=== PATIENT | female | born 1980 | race Caucasian/White ===

== ENCOUNTER → 2017-06-10 | Day surgery (SDC) | payer OTHER ==
[~2017-06-10] VITALS: Ht 180.3 cm; Wt 88.5 kg
[~2017-06-10] MED LIST: ORAL CONTRACEPTIVE
--- NOTE | 2017-06-10 14:50 | Operative Report ---
Operative/Inv Procedure Report Surgery Date: 06/10/17 Name of Procedure: 1. Left L5-S1 laminectomy, medial facetectomy 2. Left L5-S1 microdiscectomy 3. Use of operating microscope Pre-Operative Diagnosis: Left L5-S1 herniated nucleus pulposus, left L5-S1 stenosis with neural impingement Post-Operative Diagnosis: Same Estimated Blood Loss: less than 50ml Surgeon/Production Team Leader: DEAN BAINS,EYAD Sahu Anesthesia: general endotracheal tube IV Fluids: 1 L crystalloid Implants: None Urine Output: 160 mL via Soria Specimens: L5-S1 disc material Complications: None Condition: Stable Operative Indication: Patient is a 36-year-old woman with progressive left lumbar radiculopathy. She had a comprehensive conservative treatment. MRI imaging was obtained that showed a left central L5-S1 herniated nucleus pulposis with S1 nerve root impingement. Recent updated imaging showed progression of the disc herniation and she now presents for surgical decompression with discectomy. Operative/Procedure Note Note: Patient was taken to the operating room. After patient identification and surgical timeout, the patient underwent the smooth induction of general endotracheal anesthesia without incident. Following intubation a Soria catheter was sterilely inserted. DVT prophylaxis was utilized throughout the case. Patient was given 2 g of IV kefzol in Preoperative Prophylaxis. With All Tubes and Lines Secured, the Patient Was Carefully Turned to the Prone Position on Gel Rolls taking care to ensure that all pressure points were well-padded. The lumbar region the low back was widely prepped and draped in usual sterile fashion using povidone iodine solution. A vertical midline skin incision was marked over L5/S1 and a small gauge spinal needle was placed superficially and a localizing lateral x-ray obtained and confirmed the correct level. The skin was infiltrated with 10 mL of local anesthetic. Skin incision was made with a 10 blade knife. Dissection was carried down through subcutaneous tissue with the Bovie to the lumbodorsal fascia. The fascia was incised in midline and a subperiosteal dissection of the lumbar paravertebral muscles was performed on the left with the Bovie exposing the underlying spinous processes and lamina from L5 to S1. The medial facet and the pars interarticularis of L5 on the left were identified and a self-retaining retractor was placed beneath the muscle. A pendfield 4 was placed under the presumed L5 lamina and intraoperative lateral lumbar x-ray obtained and confirmed this to be at the level of the L5/S1 disc space. With the correct level verified, we proceeded to perform a laminotomy of the inferior left L5 lamina using combination the Midas Fareed and Kerrison rongeurs. We extended the laminotomy rostrally with care to leave enough of a strut of the pars so as not to compromise the inferior articular facet process. Ligamentum flavum was elevated and stripped in the underlying epidural fat and dura of the thecal sac and left S1 root were identified. We extended the decompression caudally to the level of the S1 pedicle and a medial facetectomy of the left L5-S1 joint was undertaken to decompress lateral recess. The thickened ligamentum flavum was stripped from the lateral canal and the dura was widely decompressed. We then gently mobilize the dural sac and left S1 root to the midline under a Scovel hand-held retractor and inspected the L5-S1 disc annulus. The disc was noted to be prominent with elevation of the left S1 root over it. The annulus was coagulated with a bipolar and incised in a rectangular fashion with an 11 blade knife. Discectomy was performed with small straight and angled curettes and pituitary rongeurs. We did use a 90 reverse angle curet to decompress the midline aspect of the disc and multiple fragments were removed and passed off as specimen. The [place] elevator was used to to explore the left S1 root to the level of the L5-S1 neuroforamen just beyond the pedicle and the ventral epidural space appeared to be widely patent and there did not seem to be any further compression of the root. Likewise, the [place] was used to explore the ventral epidural space to the midline. There was a general residual bulge of the disc across midline but without compression of the thecal sac. The wound was then copiously irrigated with sterile normal saline. Meticulous hemostasis was achieved using FloSeal and bone wax on the cut surfaces. Once hemostasis was assured, the patient was Valsalva to 35 mmHg 2 with the wound staying completely dry and no evidence of bleeding or CSF leak. We then began wound closure. A small pledget of thrombin-soaked Gelfoam was gently placed over the exposed dura. A piece of fat harvested from subcutaneous tissue was placed in the interlaminar defect. The wound was copiously irrigated with sterile normal saline. The lumbodorsal fascia was reapproximated with interrupted 0 Vicryl suture. 20 mL of long-acting local anesthetic was used to infiltrate the left paravertebral muscle The superficial tissues were copiously irrigated with antibiotic sterile saline irrigation and closed in layers with interrupted 2-0 Vicryl suture in the subcutaneous tissue and and a 4-0 Vicryl subcuticular stitch in the skin. The wound was cleaned and dried. Steri-Strips and a sterile occlusive dressing was placed. The patient was gently returned to the supine position, awakened, extubated, and taken to PACU in stable condition. She was noted to be moving all 4 extremities at the completion of the case. All sponge, needle, and instrument counts were correct at the completion of the procedure 3.
--- NOTE | 2017-06-10 22:18 | RADIOLOGY REPORT ---
EXAMINATION: XR LUMBAR SPINE CLINICAL INFORMATION: Microdiscectomy left L5-S1. COMPARISON: None TECHNIQUE: Single lateral view of the lumbar spine performed at 1156 and 1223. FINDINGS: Film 1 demonstrates a surgical marker pointing to the posterior spinous process of L4. Film 2 shows a surgical marker overlying the facet joint of L5-S1. IMPRESSION: Lower lumbar spine localization as discussed above.
== END ==
LOC: STS 04:34
DX: M51.17 Intervertebral disc disorders with radiculopathy, lumbosacral region (principal)
CPT/HCPCS: 36415; 72020; 81025; 87086; 88304; C9290; J0131; J0690; J2250